=== PATIENT | female | born 1945 | race Caucasian/White ===

== ENCOUNTER 2023-10-12 13:10 | Outpatient (RCR) | payer MEDICARE, SELFPAY | END 2023-10-12 23:59 | disposition home or self-care (01) | LOC: ROT 13:10 | PROVIDERS: ATTENDING PHYSICIAN Nurse Practitioner Primary Care | DX: G91.2 (Idiopathic) normal pressure hydrocephalus (principal); G31.84 Mild cognitive impairment of uncertain or unknown etiology; G60.9 Hereditary and idiopathic neuropathy, unspecified; R47.02 Dysphasia; R41.841 Cognitive communication deficit | CPT/HCPCS: 97110; 97112; 97129; 97130; 97167; 97530 ==

== ENCOUNTER 2023-11-11 13:02 | Outpatient (RCR) | payer MEDICARE, SELFPAY | END 2023-11-11 23:59 | disposition home or self-care (01) | LOC: ROT 13:02 | PROVIDERS: ATTENDING PHYSICIAN Nurse Practitioner Primary Care | DX: G91.9 Hydrocephalus, unspecified (principal); G91.2 (Idiopathic) normal pressure hydrocephalus (principal); Z73.6 Limitation of activities due to disability; G31.84 Mild cognitive impairment of uncertain or unknown etiology; G60.9 Hereditary and idiopathic neuropathy, unspecified; R47.02 Dysphasia | CPT/HCPCS: 97110; 97112; 97129; 97130; 97530; 97535 ==

== ENCOUNTER → 2023-11-20 17:06 | Outpatient (REF) | payer MEDICARE, SELFPAY ==
[2023-11-20 17:36] LABS: Urine Albumin Negative (Neg - Trace); Urine Bilirubin Negative (Negative); Urine Character Clear (Clear); Urine Color Yellow; Urine Glucose Negative (Negative); Urine Ketone Negative (Negative); Urine Leukocyte 1+ (Negative); Urine Nitrite Negative (Negative); Urine Occult Blood Negative (Negative); Urine Specific Gravity 1.005 (<1.030); Urine Urobilinogen Negative (Neg - 1+); Urine pH 6.5 (5.0-9.0)
[2023-11-20 17:53] LABS: Urine White Cell 0-2 /HPF (0-5)
== END ==
LOC: REG 17:06
PROVIDERS: ATTENDING PHYSICIAN Nurse Practitioner Family
DX: R82.90 Unspecified abnormal findings in urine (principal)
CPT/HCPCS: 81003; 81015; 87086

== ENCOUNTER 2023-12-07 10:52 | Outpatient (RCR) | payer MEDICARE, SELFPAY | END 2023-12-07 23:59 | disposition home or self-care (01) | LOC: ROT 10:52 | PROVIDERS: ATTENDING PHYSICIAN Nurse Practitioner Primary Care | DX: G91.9 Hydrocephalus, unspecified (principal); G91.2 (Idiopathic) normal pressure hydrocephalus (principal); Z73.6 Limitation of activities due to disability; G31.84 Mild cognitive impairment of uncertain or unknown etiology; G60.9 Hereditary and idiopathic neuropathy, unspecified; R47.02 Dysphasia | CPT/HCPCS: 97110; 97112; 97129; 97130; 97530 ==

== ENCOUNTER 2023-12-14 13:43 | Outpatient (RCR) | payer MEDICARE, SELFPAY | END 2023-12-14 23:59 | disposition home or self-care (01) | LOC: ROT 13:43 | PROVIDERS: ATTENDING PHYSICIAN Nurse Practitioner Primary Care | DX: G91.2 (Idiopathic) normal pressure hydrocephalus (principal); G31.84 Mild cognitive impairment of uncertain or unknown etiology; G60.9 Hereditary and idiopathic neuropathy, unspecified; R47.02 Dysphasia | CPT/HCPCS: 97129; 97130; 97530 ==

== ENCOUNTER 2023-12-14 14:23 | Emergency (ER) | payer MEDICARE, SELFPAY ==
[2023-12-14 14:30] VITALS: BP 141/84
[2023-12-14 14:47] LABS: % Basophils 0.6 % (0-2); % Eosinophils 2.6 % (0-6); % Immature Granulocytes 0.2 % (0-0.5); % Neutrophils 61.6 % (42.2-75.2); Absolute Basophils 0.1 10^3/uL (0-0.2); Absolute Eosinophils 0.2 10^3/uL (0-0.7); Absolute Lymphocytes 2.2 10^3/uL (1.2-3.4); Absolute Monocytes 0.7 10^3/uL (0.1-0.6); Absolute Neutrophils 5.1 10^3/uL (1.4-6.5); Hematocrit 41.9 % (37.0-47.0); Hemoglobin 14.3 g/dL (12.0-16.0); Mean Corp Hgb Conc. 34.1 g/dL (33.0-37.0); Mean Corpuscular Volume 93.7 fL (81.0-99.0); Mean Platelet Volume 8.7 fL (7.4-10.4); Nucleated Red Blood Cells % 0 %; Platelet Count 291 10^3/uL (130-400); Red Blood Cell Count 4.47 10^6/uL (4.20-5.40); White Blood Cell Count 8.2 10^3/uL (4.8-10.8)
[2023-12-14 15:26] LABS: ALT (SGPT) 23 U/L (0-35); AST (SGOT) 27 U/L (14-36); Albumin 4.6 g/dl (3.5-5.0); Alkaline Phosphatase 83 U/L (38-126); Blood Urea Nitrogen 10 mg/dl (7-17); Calcium 9.9 mg/dl (8.4-10.2); Carbon Dioxide 27 mmol/L (22-30); Chloride 100 mmol/L (98-107); Glucose 147 mg/dl (70-99); Lipase 97 U/L (23-300); Potassium 3.3 mmol/L (3.5-5.1); Sodium 136 mmol/L (135-145); Total Bilirubin 0.7 mg/dl (0.2-1.3); Total Protein 7.5 g/dl (6.3-8.2); eGFR > 60.00
[2023-12-14] MEDS: OMNIPAQUE 50 ML PO (18:43)
--- NOTE | 2023-12-14 19:03 | ED.GENMED ---
History of Present Illness
General
Chief Complaint: Abdominal Symptoms
Source: patient
Exam Limitations: none
Time Seen by Provider: 12/14/23 18:05
Travel History
Have you had any contact with someone who has COVID-19?: No
Do you have any symptoms of coronavirus? Fever > 100 degrees, chills, cough, shortness of breath, sore throat, loss of taste or smell, muscle aches, or headache?: No
History of Present Illness
History of Present Illness:
78-year-old female with history of hydrocephalus, has a [employer] shunt presents with symptoms of abdominal pain and vomiting. The vomiting increased over the past 2 to 3 days. She notes overall a significant weight loss since having her JETTING M[employer] shunt placed
in May 2023. She is starting with symptoms that remind her of she needed her JETTING M[employer]INE [employer] shunt placed. She is getting sick in the car. She denies significant headache. She denies fever or chest pain. No other complaints at this time. She was seen
by her family doctor who was advised to get a CT scan of her abdomen pelvis with oral and IV contrast however she was unable to make it work secondary to her IV contrast allergy.
Past History
Past History
ED Past Medical History: CAD, Cancer (Lung), GERD, Hypercholesterolemia, [place] and Other (diverticular disease, IBS, hiatal hernia, esophageal varices, esophageal stricture, benign essential tremor)
ED Past Surgical History: Brain and Other (Lung resection for cancer)
Social History
Tobacco: Non-smoker
Alcohol: Other
Drug: None
Personal:
Living: with family
Employment: Retired
Family History
Family History: Other
Phy Exam
Physical Exam
Physical Exam:
General: Well-appearing female no acute respiratory distress
HEENT: Normocephalic atraumatic neck is supple pupils equal round reactive to light
Heart: Regular rate and rhythm no murmurs
Lungs: Clear to auscultation bilaterally no wheezing
Abdomen: Soft mildly tender to the lower abdomen. No guarding or rebound normal bowel sounds
Extremities: No cyanosis or edema
Skin: Warm no rash or lesion
Neurologic: Alert and oriented no facial asymmetry
Course
Orders/Labs/Results
Orders:
Orders
12/14/23 14:39
Complete Blood Count/With Diff Urgent
Comprehensive Metabolic Panel Urgent
Lipase Urgent
12/14/23 18:25
Diphenhydramine [Benadryl] 50 mg IV NOW STA
Hydrocortisone Sod Succinate [Solu-Cortef] 200 mg IV NOW STA
Iohexol [Omnipaque] See Protocol PO NOW STA
12/14/23 18:26
CT Abd/pel W Iv And Oral Contr Urgent
Comment:
Reason For Exam: abdominal pain, vomiting, weight loss
CT Head W/o Iv Contrast Urgent
Comment:
Reason For Exam: vomiting, J[employer]TING [employer] shunt
12/14/23 20:44
Hydrocortisone Sod Succinate [Solu-Cortef] 200 mg .ROUTE .STK-MED ONE
Abnormal Lab Results
12/14/23
14:39
MCH 32.0 H pg
(27.0-31.0)
Absolute Monos (auto) 0.7 H 10^3/uL
(0.1-0.6)
Potassium 3.3 L mmol/L
(3.5-5.1)
Creatinine 0.5 L mg/dL
(0.6-1.0)
Glucose 147 H mg/dl
(70-99)
12/14/23 14:39
12/14/23 14:39
Vital Signs
Initial and Last Documented VS:
Initial Vital Signs
Temp Pulse Resp BP Pulse Ox
98.1 F 79 18 141/84 97
12/14/23 14:30 12/14/23 14:30 12/14/23 14:30 12/14/23 14:30 12/14/23 14:30
Last Documented Vital Signs
Temp Pulse Resp BP Pulse Ox
98.1 F 79 18 141/84 97
12/14/23 14:30 12/14/23 14:30 12/14/23 14:30 12/14/23 14:30 12/14/23 14:30
MDM/Problems Addressed
Differential Diagnosis Includes:
Abdominal pain with vomiting. History of J[employer]TING [employer] shunt. Patient notes similarity of symptoms today compared to the time prior to having a JETTING MACHINE [employer] shunt. Will get labs. Will check CT scan of head to evaluate for hydrocephalus and CT scan of abdomen and
pelvis with oral and IV contrast to evaluate for reasons for nausea vomiting abdominal pain with weight loss. She is allergic to IV contrast but is a mild allergy. Will pretreat with Solu-Cortef and Benadryl
*Critical Care Note
Total Time (30-74mins, 75-104mins- exclusive of procedures): Not Applicable
Update Note
Update Note:
Workup here included CT of the head which was negative for acute finding. CT of the abdomen and pelvis was performed after pretreatment for IV contrast allergy. This showed no acute finding. There is questionable thickening of the gastric antrum
to suggest possibility of gastritis. Recommend Zofran if needed for nausea and follow-up with GI. Stable for discharge.
ED Attending Note
-
Portions of this chart may have been created with voice recognition software.� Occasional wrong word or��sound alike� substitutions may have occurred due to the inherent limitations of voice recognition software.
Discharge Plan
Departure
Patient Disposition: Home (Routine Discharge)
Date of Disposition: 12/14/23
Time of Disposition: 22:21
Patient with high blood pressure during this ER visit?: No
Discharge Problem:
Nausea & vomiting
Instructions: Nausea and Vomiting, Adult (DC)
Prescriptions:
New
ondansetron 4 mg tablet,disintegrating
4 mg PO TID PRN (Reason: nausea and vomiting) Qty: 10 0RF
No Action
primidone 50 mg Tablet
100 mg PO HS
omega-3 fatty acids 1,000 mg Capsule
1,000 mg PO DAILY
montelukast [Singulair] 10 mg Tablet
10 mg PO DAILY
lysine [L-Lysine] 500 mg Tablet
500 mg PO DAILY
aspirin 81 mg Capsule
81 mg PO DAILY
fluoxetine 40 mg Capsule
40 mg PO DAILY
atorvastatin 80 mg Tablet
80 mg PO DAILY
mirtazapine 15 mg Tablet
15 mg PO HS
fluticasone propion-salmeterol [Advair Diskus] 100-50 mcg/dose Blister With Device
1 inh INHALATION PRN PRN (Reason: SOB)
loratadine 10 mg Tablet
10 mg DAILY
gabapentin 100 mg Tablet
200 mg PO TID
celecoxib 200 mg Capsule
200 mg PO DAILY
ranolazine [Ranexa] 500 mg Tablet Extended Release 12 Hr
500 mg PO BID
icosapent ethyl [Vascepa] 1 gram Capsule
2 g PO BID
docusate sodium 100 mg Capsule
100 mg PO BID 30 Days Qty: 60 0RF
guaifenesin [Mucinex] 600 mg Tablet Extended Release 12hr
600 mg PO Q12 Qty: 30 0RF
benzonatate 100 mg Capsule
200 mg PO TIDPRN PRN (Reason: cough) Qty: 14 0RF
albuterol sulfate 90 mcg/actuation Hfa Aerosol Inhaler
2 puff inhalation R Q4HPRN PRN (Reason: SOB) 30 Days Qty: 1 0RF
acetaminophen 325 mg Tablet
650 mg PO Q4HPRN PRN (Reason: Mild Pain / Temp > 101) Qty: 60 0RF
potassium chloride 20 mEq tablet,ER particles/crystals
20 meq PO DAILY Qty: 5 0RF
ondansetron 4 mg Tablet,Disintegrating
4 mg PO BIDPRN PRN (Reason: nausea/vomiting) Qty: 10 0RF
Referrals:
Michelle Cantu CRNP [Family Provider] -
Activity Restrictions/Additional Instructions:
Continue drinking plenty of clear liquids. Use Zofran if needed for nausea. Return for worsening symptoms otherwise follow-up with GI
Interventions
Interventions:
*Risk Screen - Suicide Last Done: 12/14/23 14:30
*General Assessment Last Done: 12/14/23 14:30
*Neglect/Abuse Screening Last Done: 12/14/23 14:30
*ED COVID-19 Vaccine History Last Done: 12/14/23 18:07
QW-Tzfpcm-[id number] Assessment Last Done: 12/14/23 18:07
Discharge Date and Time
Print Language: ALBANIAN
[2023-12-14] MEDS: SOLU-CORTEF 200 MG IV (19:53)
[2023-12-14] MEDS: BENADRYL 50 MG IV (19:53)
[2023-12-14 22:37] VITALS: BP 123/74
== END 2023-12-14 22:38 | disposition home or self-care (01) ==
LOC: EMR 14:23
PROVIDERS: Emergency Medicine; EMERGENCY PHYSICIAN Emergency Medicine; FAMILY PHYSICIAN Nurse Practitioner Primary Care
DX: R11.2 Nausea with vomiting, unspecified (principal); Z98.2 Presence of cerebrospinal fluid drainage device
CPT/HCPCS: 99285; 96374; 96375; 70450; 74177; 80053; 83690; 85025; Q9967

== ENCOUNTER 2024-03-14 14:15 | Emergency (ER) | payer MEDICARE, SELFPAY ==
[2024-03-14 14:19] VITALS: BP 141/78
[2024-03-14 14:22] VITALS: BP 141/78
[2024-03-14 15:00] VITALS: BP 123/103
--- NOTE | 2024-03-14 15:22 | ED.GENMED ---
History of Present Illness
General
Chief Complaint: Anxiety
Time Seen by Provider: 03/14/24 15:18
History of Present Illness
History of Present Illness:
HPI: The reason for visit was unclear upon arrival so I spoke to the daughter over the phone at 3:30 PM. The daughter tells me that the patient was recently hospitalized at [place]. She had some GI issues and has been getting PT/OT at home. OT
noted today that when she got out of the shower she was shaking (more than her baseline tremor) and was hyperventilating. The primary care provider was called and ultimately the decision was made to have the patient come to the hospital. Upon my
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 She reportedly had a high heart rate earlier as well.
EXAM:
GENERAL: Appears in no distress but a subtle tremor is noted
HEENT: Moist oral mucosa
CARDIOVASCULAR: Regular rate and rhythm
PULMONARY: No respiratory distress, breathing is nonlabored, equal and clear breath sounds
ABDOMEN: Soft and nontender with no peritoneal signs
NEUROLOGIC: The patient is not oriented to place and has trouble naming the day, strength is equal in all extremities, subtle tremor, no sensory changes
EXTREMITIES: Moves all extremities equally, no tenderness, no edema
PYSCHIATRIC: Very limited historian, limited insight and judgment
TIME OF INITIAL ENCOUNTER: 3:30 PM
NUMBER AND COMPLEXITY OF PROBLEMS ADDRESSED AT THE ENCOUNTER
� Chronic conditions affecting care: Lung cancer, CAD/TX, hyperlipidemia,
� Acute Exacerbation and/or Progression of Chronic Illness: The chronicity of this is unclear at this time
� Differential Diagnosis includes: Anxiety, hypoglycemia, dysrhythmia
AMOUNT AND/OR COMPLEXITY OF DATA TO BE REVIEWED AND ANALYZED
� I performed an independent evaluation of and my interpretation is:
EKG: Sinus 88, normal axis, nonspecific ST abnormality, QTc is noted to be prolonged however also was prolonged last year
CT:
X-rays:
Laboratory Studies: Blood sugar 93
Other:
� Review of other/old records: I reviewed records, OT notes here from January of this year indicate history of idiopathic normal pressure hydrocephalus
� Clinical information was obtained by an independent historian: I spoke to the daughter over the phone�during her conversation the daughter was pleased with how she sounded over the phone
� Prescriptions/Medications Considered but not given:
� Further testing considered but not performed:
RISK OF COMPLICATIONS AND/OR MORBIDITY OR MORTALITY OF PATIENT MANAGEMENT
� Social determinants of health affecting care: Lives at home with who apparently is disabled
� Discussion with other providers:
� Escalation of care including admission/observation vs risk of discharge considered: The patient had reportedly an extensive workup at [place]. Daughter states there has been no recent concerning lab abnormalities. There was
some question if she ate today. Blood check. EKG is also obtained.
Past History
Past History
ED Past Medical History: CAD, Cancer (Lung), GERD, Hypercholesterolemia, [place] and Other (diverticular disease, IBS, hiatal hernia, esophageal varices, esophageal stricture, benign essential tremor)
ED Past Surgical History: Brain and Other (Lung resection for cancer)
Social History
Tobacco: Non-smoker
Alcohol: Other
Drug: None
Personal:
Living: with family
Employment: Retired
Family History
Family History: Other
Phy Exam
Physical Exam
Physical Exam:
See HPI
Course
Orders/Labs/Results
Orders:
Orders
03/14/24 15:34
Electrocardiogram (*1) Urgent
Reason for Study: QTc Monitoring
EKG- Treatment ONCE
03/14/24 15:36
Bedside Glucose- Treatment ONCE
Vital Signs
Initial and Last Documented VS:
Initial Vital Signs
BP
141/78
03/14/24 14:19
Last Documented Vital Signs
Temp Pulse Resp BP Pulse Ox
98.1 F 91 18 123/103 99
03/14/24 14:22 03/14/24 15:00 03/14/24 15:00 03/14/24 15:00 03/14/24 15:00
*Critical Care Note
Total Time (30-74mins, 75-104mins- exclusive of procedures): Not Applicable
ED Attending Note
-
Portions of this chart may have been created with voice recognition software.� Occasional wrong word or��sound alike� substitutions may have occurred due to the inherent limitations of voice recognition software.
Discharge Plan
Departure
Patient Disposition: Home (Routine Discharge)
Date of Disposition: 03/14/24
Time of Disposition: 15:40
Patient with high blood pressure during this ER visit?: Yes
Discharge Problem:
Anxiety
Instructions: Anxiety, Adult (DC), BLOOD PRESSURE
Prescriptions:
No Action
primidone 50 mg Tablet
100 mg PO HS
omega-3 fatty acids 1,000 mg Capsule
1,000 mg PO DAILY
montelukast [Singulair] 10 mg Tablet
10 mg PO DAILY
lysine [L-Lysine] 500 mg Tablet
500 mg PO DAILY
aspirin 81 mg Capsule
81 mg PO DAILY
fluoxetine 40 mg Capsule
40 mg PO DAILY
atorvastatin 80 mg Tablet
80 mg PO DAILY
mirtazapine 15 mg Tablet
15 mg PO HS
fluticasone propion-salmeterol [Advair Diskus] 100-50 mcg/dose Blister With Device
1 inh INHALATION PRN PRN (Reason: SOB)
loratadine 10 mg Tablet
10 mg DAILY
gabapentin 100 mg Tablet
200 mg PO TID
celecoxib 200 mg Capsule
200 mg PO DAILY
ranolazine [Ranexa] 500 mg Tablet Extended Release 12 Hr
500 mg PO BID
icosapent ethyl [Vascepa] 1 gram Capsule
2 g PO BID
docusate sodium 100 mg Capsule
100 mg PO BID 30 Days Qty: 60 0RF
guaifenesin [Mucinex] 600 mg Tablet Extended Release 12hr
600 mg PO Q12 Qty: 30 0RF
benzonatate 100 mg Capsule
200 mg PO TIDPRN PRN (Reason: cough) Qty: 14 0RF
albuterol sulfate 90 mcg/actuation Hfa Aerosol Inhaler
2 puff inhalation R Q4HPRN PRN (Reason: SOB) 30 Days Qty: 1 0RF
acetaminophen 325 mg Tablet
650 mg PO Q4HPRN PRN (Reason: Mild Pain / Temp > 101) Qty: 60 0RF
potassium chloride 20 mEq tablet,ER particles/crystals
20 meq PO DAILY Qty: 5 0RF
ondansetron 4 mg Tablet,Disintegrating
4 mg PO BIDPRN PRN (Reason: nausea/vomiting) Qty: 10 0RF
ondansetron 4 mg tablet,disintegrating
4 mg PO TID PRN (Reason: nausea and vomiting) Qty: 10 0RF
Referrals:
UNKNOWN - PT DOES,NOT KNOW [Family Provider] -
Activity Restrictions/Additional Instructions:
Cardiac monitoring was normal here. Oxygen levels are very good. Vital signs are unremarkable with exception of slightly high blood pressure. Your heart rate was normal. Blood sugar was 93 which is excellent. Return here if worse.
Interventions
Interventions:
*Risk Screen - Suicide Last Done: 03/14/24 14:26
*Neglect/Abuse Screening Last Done: 03/14/24 14:26
ED- Fall Risk Assessment Last Done: 03/14/24 14:26
*ED COVID-19 Vaccine History Last Done: 03/14/24 14:25
Discharge Date and Time
Print Language: MONTSERRATIAN
[2024-03-14 15:39] LABS: Glucose - Point of Care 93 mg/dl (70-99)
== END 2024-03-14 16:27 | disposition home or self-care (01) ==
LOC: EMR 14:15
PROVIDERS: EMERGENCY PHYSICIAN Emergency Medicine
DX: F41.9 Anxiety disorder, unspecified (principal); R25.1 Tremor, unspecified; R06.4 Hyperventilation; R03.0 Elevated blood-pressure reading, without diagnosis of hypertension; Z79.82 Long term (current) use of aspirin; Z88.5 Allergy status to narcotic agent; Z91.041 Radiographic dye allergy status
CPT/HCPCS: 99284; 82962; 93005

== ENCOUNTER → 2024-03-30 18:08 | Outpatient (REF) | payer MEDICARE, SELFPAY | LOC: RCS 18:08 | PROVIDERS: ATTENDING PHYSICIAN Nurse Practitioner Family | DX: R55 Syncope and collapse (principal); R93.1 Abnormal findings on diagnostic imaging of heart and coronary circulation; Z86.79 Personal history of other diseases of the circulatory system | CPT/HCPCS: 93306 ==

== ENCOUNTER → 2024-04-23 10:33 | Outpatient (REF) | payer MEDICARE, SELFPAY | LOC: RAD 10:33 | PROVIDERS: ATTENDING PHYSICIAN Nurse Practitioner Family; FAMILY PHYSICIAN Internal Medicine Hematology & Oncology; OTHER PHYSICIAN Specialist | DX: R11.0 Nausea (principal); G91.2 (Idiopathic) normal pressure hydrocephalus | CPT/HCPCS: 70450 ==

== ENCOUNTER → 2024-06-02 13:46 | Outpatient (REF) | payer MEDICARE, SELFPAY | LOC: WDC 13:46 | PROVIDERS: ATTENDING PHYSICIAN Nurse Practitioner Primary Care | DX: Z12.31 Encounter for screening mammogram for malignant neoplasm of breast (principal) | CPT/HCPCS: 77063; 77067 ==

== ENCOUNTER → 2024-07-29 11:26 | Outpatient (REF) | payer MEDICARE, SELFPAY | LOC: RAD 11:26 | PROVIDERS: ATTENDING PHYSICIAN Nurse Practitioner Family | DX: R05.3 Chronic cough (principal) | CPT/HCPCS: 71046 ==

== ENCOUNTER → 2024-10-20 13:02 | Outpatient (REF) | payer MEDICARE, SELFPAY | LOC: RCS 13:02 | PROVIDERS: ATTENDING PHYSICIAN Student in an Organized Health Care Education/Training Program; FAMILY PHYSICIAN Nurse Practitioner Primary Care | DX: I35.0 Nonrheumatic aortic (valve) stenosis (principal) | CPT/HCPCS: 93306 ==

== ENCOUNTER → 2024-10-28 12:05 | Outpatient (REF) | payer MEDICARE, SELFPAY | LOC: RCS 12:05 | PROVIDERS: ATTENDING PHYSICIAN Student in an Organized Health Care Education/Training Program; FAMILY PHYSICIAN Nurse Practitioner Primary Care | DX: I35.0 Nonrheumatic aortic (valve) stenosis (principal); I50.22 Chronic systolic (congestive) heart failure | CPT/HCPCS: 93017 ==

== ENCOUNTER 2024-11-25 10:23 | Day surgery (SDC) | payer MEDICARE, SELFPAY ==
--- NOTE | 2024-11-24 17:35 | CONSULT.STRU ---
Consultation
-
Date/Time Consultation Requested: 11/25/2024
Date/Time Consultation Performed: 11/25/2024
Requesting Provider: Saleem Lozano MD
Performing Provider: THANH Reynolds
Reason for Consultation: /TAVR
Patient History
Physicians
Family Physician: Michelle Cantu MD
Outpatient Industrial Chemist: Saleem Carlos MD
Primary Industrial Chemist: Saleem Lozano MD
History of Present Illness
Ms. Woodward is a very pleasant 79 yof with a past medical history significant for As, CAD, PA, high cholesterol, lung Ca (stage IA), PE, [employer] shunt, and asthma. Her echocardiogram from 10/20/2024 is notable for EF 55-60%, AV P/M 49/76, CANDIS 0.6, DI, 0.2,
pk inocente 4.37, mild MR, Trace TR. From a symptomatology standpoint, she describes increased fatigue. Discussed the pathophysiology and treatment of options of including SAVR and TAVR. Explained the evaluation process comprising of lab work, CT
scan, CT surgical consult, dental clearance, and a heart team discussion. Prescriptions, appointments, TAVR booklet, and contact information given to patient. Allowed for and answered questions at bedside.
Past Medical History
Past Medical History: Asthma, CAD, Cancer (lung), Covid-19, GERD, Hypercholesterolemia, PA, VALENTÍN, Valvular Disease () and Other (PE, IBS, duodenal ulcer, TAkotsubo CM)
Past Surgical History
Past Surgical History: Orthopedic (rotator cuff, bilateral knee replacement, first finger amputation), Tonsilectomy and Other (right lobectomy, right lung nodules removed)
Dental History
UTD (will call with dental information)
Family History
Mother: N/A
Father: N/A
Family Medical History: Diabetes
Social History
Alcohol: None
Drug: None
Tobacco: Non-Smoker
Allergies
Allergy/AdvReac Type Severity Reaction Status Date / Time
codeine Allergy headache Verified 10/25/22 17:30
Iodinated Contrast Media Allergy 'I need Verified 10/25/22 17:30
the prep'
Opioids - Morphine Analogues Allergy NARCOTICS-N Verified 10/25/22 17:30
AUSEA/VOMIT
ING
Home Medications
�Medication �Instructions �Recorded �Confirmed �Type
aspirin 81 mg capsule 81 mg PO DAILY Blood clot 06/13/22 10/25/22 History
prevention/tx
atorvastatin 80 mg tablet 80 mg PO DAILY High cholesterol 06/13/22 10/25/22 History
fluoxetine 40 mg capsule 40 mg PO DAILY Mental 06/13/22 10/25/22 History
Health/Anxiety
fluticasone 100 mcg-salmeterol 50 1 inh inhalation PRN PRN SOB 06/13/22 10/25/22 History
mcg/dose blistr powdr for
inhalation (Advair Diskus)
gabapentin 100 mg tablet 200 mg PO TID Neurological 06/13/22 10/25/22 History
Condition
loratadine 10 mg tablet 10 mg DAILY Allergies 06/13/22 10/25/22 History
lysine 500 mg tablet (L-Lysine) 500 mg PO DAILY Supplement 06/13/22 10/25/22 History
mirtazapine 15 mg tablet 15 mg PO HS Sleep 06/13/22 10/25/22 History
montelukast 10 mg tablet 10 mg PO DAILY Allergies 06/13/22 10/25/22 History
(Singulair)
omega-3 fatty acids 1,000 mg 1,000 mg PO DAILY Supplement 06/13/22 10/25/22 History
capsule
primidone 50 mg tablet 100 mg PO HS Seizures 06/13/22 10/25/22 History
celecoxib 200 mg capsule 200 mg PO DAILY 10/25/22 10/25/22 History
icosapent ethyl 1 gram capsule 2 g PO BID 10/25/22 10/25/22 History
(Vascepa)
ranolazine 500 mg tablet,extended 500 mg PO BID 10/25/22 10/25/22 History
release,12 hr (Ranexa)
acetaminophen 325 mg tablet 650 mg (2 x 325 mg) PO Q4HPRN PRN 10/27/22 Rx
Mild Pain / Temp > 101 #60 tabs
albuterol sulfate 90 mcg/actuation 2 puff inhalation R Q4HPRN PRN SOB 10/27/22 Rx
aerosol inhaler 30 days #1 amp
benzonatate 100 mg capsule 200 mg (2 x 100 mg) PO TIDPRN PRN 10/27/22 Rx
cough #14 caps
docusate sodium 100 mg capsule 100 mg PO BID 30 days #60 caps 10/27/22 Rx
guaifenesin 600 mg tablet, 600 mg PO Q12 #30 tabs 10/27/22 Rx
extended release 12 hr (Mucinex)
ondansetron 4 mg disintegrating 4 mg PO BIDPRN PRN nausea/vomiting 06/07/23 Rx
tablet #10 tabs
potassium chloride 20 mEq 20 meq PO DAILY #5 tabs 06/07/23 Rx
tablet,extended release(part/cryst)
ondansetron 4 mg disintegrating 4 mg PO TID PRN nausea and 12/14/23 Rx
tablet vomiting #10 tabs
STS%
STS %: 2.2
Review of Systems
-
History Source: Patient
General: Reports Fatigue
HEENT: Reports No Symptoms
Respiratory: Reports No Symptoms
Cardiac: Reports No Symptoms
Abdomen/GI: Reports No Symptoms
: Reports No Symptoms
Musculoskeletal: Reports No Symptoms
Skin: Reports No Symptoms
Neurological: Reports Dizzy and Other (forgetfulness)
Vascular: Reports No Symptoms
Physical Exam
Labs
10/27/2024
HH: 13.4/40.5
BUn/Creatinine: 110.82
GFR: 73
Diagnostic Studies
ECHOCARDIOGRAM 10/20/2024
CONCLUSIONS
Normal LV size and function with mild concentric LVH. EF 55-60%. Stage I
diastolic dysfunction.
Normal RV size and function.
Mild MR.
Calcified aortic valve with restricted opening and mean gradient 49 mmHg, peak
gradient 76, CANDIS 0.6 cm eq, DVI 0.2.
Trace TR.
Mild to moderate pulmonic regurgitation.
Procedure Type:�Isolated AVR
Perioperative Outcome Estimate %
Operative Mortality 2.2%
Morbidity & Mortality 6.01%
Stroke 1.29%
Renal Failure 0.711%
Reoperation 3.12%
Prolonged Ventilation 2.77%
Deep Sternal Wound Infection 0.033%
Long Hospital Stay (>14 days) 2.95%
Short Hospital Stay (<6 days)* 50.7%
Exam
General: Well Developed, Well Nourished and No Apparent Distress
HEENT: Normocephalic
Neck: Trachea Midline
Respiratory: Clear
Cardiac: Regular Rhythm and Murmur (IV/ NEERAJ)
GI: Soft, Non Tender and Non Distended
Rectal: Deferred by Provider
Skin: Warm and Dry
Neuro: Awake, Alert, Oriented and AO x 3
Psych: Calm
Assessment / Plan
-
Aortic Stenosis:
Continue TAVR evaluation
Trend creatinine (Rx given)
TAVR CT (12/09)--Premedicate with prednisone and benadryl
CT surgical consult (TT 12/19)
Frailty and KCCQ12 at consult
Continue Aspirin
Dental clearance
Heart team discussion
Data Reviewed
-
Chief Client Officer: Discussed with Physician
Echo: Report Reviewed by me and Discussed with Physician
Labs: Labs Reviewed by me
Old Records: Reviewed (Dr. Lozano OV)
Total Time Spent with Patient (in minutes): 45
[2024-11-25] VITALS (11 sets, daily range): BP systolic 100–125; BP diastolic 45–97; BMI 22.3
--- NOTE | 2024-11-25 19:59 | ITS.CL.PN ---
Installation Helper - Procedure Note
Procedure
Procedure Note:
CARDIAC CATHETERIZATION REPORT
Date of Procedure: 11/25/2024
Referring: Dr. Saleem Mo MD
Indication: Severe aortic stenosis
PROCEDURE(S)
1. right heart catheterization
2. coronary angiography
ACCESS
1. 6F right radial artery (closure: radial band)
2. 5F right antecubital vein (closure: manual hemostasis)
CATHETERS
1. 5F Henderson-Angela
2. 6F JR4
3. 6F AL1
MODERATE SEDATION: 40 minutes of moderate sedation was utilized. An independent medical management specialist was present to assist with and help manage the patient's level of consciousness and physiologic status.
ULTRASOUND GUIDED VASCULAR ACCESS (right radial artery): Ultrasound was utilized for vascular access. The vessel was visualized under ultrasound and noted to be patent. An image of the vessel was stored permanently in the patient's medical record.
Under direct ultrasound guidance, vascular access was obtained using a modified Seldinger technique and a 6 [place] sheath was placed.
ULTRASOUND GUIDED VASCULAR ACCESS (right brachial vein): Ultrasound was utilized for vascular access. The vessel was visualized under ultrasound and noted to be patent. An image of the vessel was stored permanently in the patient's medical record.
Under direct ultrasound guidance, vascular access was obtained using a modified Seldinger technique and a 5 [place] sheath was placed.
HEMODYNAMIC DATA
AO 115/70 (mean 91) mmHg
RA 11 mmHg
RV 38/4 (EDP 9) mmHg
PA 36/15 (mean 25) mmHg
PCWP 18 mmHg
SaO2 93.9%
SvO2 74.1%
Hb 13.2 g/dL
CO/CI 5.59/3.52 L/min/m2
SVR 1145 dsc*-5
PVR 1.3 Wood units
CORONARY ANGIOGRAPHY
Dominance: Left
LM: Short, normal
LAD: Large vessel giving rise to 3 small caliber diagonal branches. There is mild nonobstructive disease
LCx: Large dominant vessel giving rise to a small OM1, very large branching OM2, and moderate caliber LPDA. There is mild nonobstructive disease
RCA: Small and nondominant without significant disease
RADIATION: dose 310 mGy; DAP 23.8 Gy*cm2; fluoroscopy time 12.0 min
CONCLUSIONS
1. Mild nonobstructive coronary artery disease in a left dominant system.
2. Mildly elevated biventricular filling pressures, mild pulmonary hypertension, and normal cardiac output
RECOMMENDATIONS
1. Proceed with TAVR workup with CT scan and CT surgical meeting
2. Secondary prevention of coronary artery disease
Copy to: Michelle Cantu MD (PCP)
Signed: Saleem Lozano MD, PhD
== END 2024-11-25 19:55 | disposition home or self-care (01) ==
LOC: CATH 10:23
PROVIDERS: ATTENDING PHYSICIAN Student in an Organized Health Care Education/Training Program; FAMILY PHYSICIAN Nurse Practitioner Primary Care
DX: I35.0 Nonrheumatic aortic (valve) stenosis (principal); I27.20 Pulmonary hypertension, unspecified; I25.2 Old myocardial infarction; Z98.2 Presence of cerebrospinal fluid drainage device; J45.909 Unspecified asthma, uncomplicated; E78.00 Pure hypercholesterolemia, unspecified; I25.10 Atherosclerotic heart disease of native coronary artery without angina pectoris; Z96.653 Presence of artificial knee joint, bilateral; Z83.3 Family history of diabetes mellitus; K21.9 Gastro-esophageal reflux disease without esophagitis; I51.81 Takotsubo syndrome
CPT/HCPCS: 99152; 99153; 76937; 93456; C1769; C1894; Q9967

== ENCOUNTER 2024-11-29 06:11 | Day surgery (SDC) | payer MEDICARE, SELFPAY ==
[2024-11-29 08:52] VITALS: BMI 22.0
[2024-11-29 09:00] VITALS: BP 162/97
[2024-11-29] MEDS: ZOFRAN 4 MG IV (09:19)
[2024-11-29 09:25] VITALS: BMI 22.0
[2024-11-29 10:00] VITALS: BP 130/81
[2024-11-29 10:15] VITALS: BP 125/82
[2024-11-29 10:30] VITALS: BP 129/66
== END 2024-11-29 10:51 | disposition home or self-care (01) ==
LOC: SDS 06:11
PROVIDERS: ATTENDING PHYSICIAN Internal Medicine Gastroenterology
DX: D50.9 Iron deficiency anemia, unspecified (principal); K57.30 Diverticulosis of large intestine without perforation or abscess without bleeding; K64.8 Other hemorrhoids; K44.9 Diaphragmatic hernia without obstruction or gangrene; K31.7 Polyp of stomach and duodenum
CPT/HCPCS: 45378; 43239; 88305

== ENCOUNTER → 2024-12-08 08:28 | Outpatient (REF) | payer MEDICARE, SELFPAY ==
[2024-12-08 09:00] LABS: Ionized Calcium 1.36 mMOL/L (1.15-1.33)
[2024-12-08 09:28] LABS: Blood Urea Nitrogen 16 mg/dl (7-17); Calcium 11.1 mg/dl (8.4-10.2); Carbon Dioxide 29 mmol/L (22-30); Chloride 100 mmol/L (98-107); Glucose 106 mg/dl (70-99); Potassium 4.7 mmol/L (3.5-5.1); Sodium 140 mmol/L (135-145); eGFR > 60.00
[2024-12-10 09:15] LABS: Intact PTH 58.5 pg/ml (13.6-85.8)
== END ==
LOC: REG 08:28
PROVIDERS: ATTENDING PHYSICIAN Nurse Practitioner Acute Care; FAMILY PHYSICIAN Nurse Practitioner Primary Care
DX: I35.0 Nonrheumatic aortic (valve) stenosis (principal); E83.52 Hypercalcemia
CPT/HCPCS: 36415; 80048; 82330; 83970

== ENCOUNTER → 2024-12-09 09:03 | Outpatient (REF) | payer MEDICARE, SELFPAY | LOC: RAD 09:03 | PROVIDERS: ATTENDING PHYSICIAN Nurse Practitioner Acute Care; FAMILY PHYSICIAN Nurse Practitioner Primary Care | DX: I35.0 Nonrheumatic aortic (valve) stenosis (principal) | CPT/HCPCS: 74174; 75572; Q9967 ==

== ENCOUNTER → 2025-01-05 14:52 | Outpatient (REF) | payer MEDICARE, SELFPAY ==
[2025-01-05 15:27] LABS: % Basophils 0.9 % (0-2); % Eosinophils 4.9 % (0-6); % Immature Granulocytes 0.8 % (0-0.5); % Lymphocytes 29.9 % (20.5-51.1); % Monocytes 10.1 % (1.7-9.3); % Neutrophils 53.4 % (42.2-75.2); Absolute Basophils 0.1 10^3/uL (0-0.2); Absolute Eosinophils 0.4 10^3/uL (0-0.7); Absolute Immature Granulocytes 0.1 10^3/uL (0-0.05); Absolute Lymphocytes 2.4 10^3/uL (1.2-3.4); Absolute Monocytes 0.8 10^3/uL (0.1-0.6); Absolute Neutrophils 4.3 10^3/uL (1.4-6.5); Hematocrit 42.3 % (37.0-47.0); Hemoglobin 13.9 g/dL (12.0-16.0); Mean Corp Hgb Conc. 32.9 g/dL (33.0-37.0); Mean Corpuscular Hgb 31.6 pg (27.0-31.0); Mean Corpuscular Volume 96.1 fL (81.0-99.0); Mean Platelet Volume 8.6 fL (7.4-10.4); Nucleated Red Blood Cells % 0 %; Platelet Count 289 10^3/uL (130-400)
[2025-01-05 15:49] LABS: ALT (SGPT) 32 U/L (0-35); AST (SGOT) 25 U/L (14-36); Albumin 4.9 g/dl (3.5-5.0); Alkaline Phosphatase 94 U/L (38-126); Blood Urea Nitrogen 15 mg/dl (7-17); Calcium 10.8 mg/dl (8.4-10.2); Carbon Dioxide 28 mmol/L (22-30); Chloride 100 mmol/L (98-107); Glucose 84 mg/dl (70-99); Potassium 4.5 mmol/L (3.5-5.1); Sodium 140 mmol/L (135-145); Total Bilirubin 0.6 mg/dl (0.2-1.3); Total Protein 7.8 g/dl (6.3-8.2); eGFR > 60.00
[2025-01-05 16:04] LABS: Vitamin D, 25-OH*** 62.2 ng/mL (30-80)
[2025-01-05 16:18] LABS: TSH Reflex To Free T4 2.23 uIU/ml (0.47-4.68)
[2025-01-07 09:48] LABS: Intact PTH 61.9 pg/ml (13.6-85.8)
== END ==
LOC: REG 14:52
PROVIDERS: ATTENDING PHYSICIAN Nurse Practitioner Primary Care
DX: K92.1 Melena (principal); R63.4 Abnormal weight loss; R19.5 Other fecal abnormalities; R19.7 Diarrhea, unspecified; D50.8 Other iron deficiency anemias; E83.52 Hypercalcemia
CPT/HCPCS: 36415; 80053; 82306; 83970; 84443; 85025; 87045; 87046; 87324; 87328; 87329; 87427; 87449; 89055

== ENCOUNTER → 2025-01-11 14:35 | Outpatient (REF) | payer MEDICARE, SELFPAY ==
[2025-01-11 23:39] LABS: IgA 511 mg/dl (70-400); IgG 1037 mg/dl (700-1600); IgM 46 mg/dl (40-230)
== END ==
LOC: REG 14:35
PROVIDERS: ATTENDING PHYSICIAN Nurse Practitioner Primary Care
DX: E83.52 Hypercalcemia (principal)
CPT/HCPCS: 36415; 82784; 84155; 84165

== ENCOUNTER → 2025-01-12 11:22 | Outpatient (REF) | payer MEDICARE, SELFPAY | LOC: HWRAD 11:22 | PROVIDERS: ATTENDING PHYSICIAN Specialist; FAMILY PHYSICIAN Nurse Practitioner Primary Care | DX: G91.2 (Idiopathic) normal pressure hydrocephalus (principal); F03.90 Unspecified dementia, unspecified severity, without behavioral disturbance, psychotic disturbance, mood disturbance, and anxiety | CPT/HCPCS: 70450 ==

== ENCOUNTER → 2025-01-16 12:15 | Outpatient (REF) | payer MEDICARE, SELFPAY ==
[2025-01-16 13:45] LABS: 24 Hour Urine Total Volume 2250 ml
[2025-01-16 13:59] LABS: Urine Calcium < 1.0 mg/dl
[2025-01-16 14:15] LABS: 24 Hour Urine Creatinine 0.726 gm/day (0.8-1.8)
== END ==
LOC: REG 12:15
PROVIDERS: ATTENDING PHYSICIAN Nurse Practitioner Primary Care
DX: E83.52 Hypercalcemia (principal)
CPT/HCPCS: 81050; 82340; 82570

== ENCOUNTER 2025-01-19 08:01 | Inpatient (IN) | payer MEDICARE, SELFPAY ==
--- NOTE | 2025-01-11 10:32 | HPS.HSE ---
Family Physician
-
Family Physician: Michelle Cantu
Cardiology: Saleem Lozano
Chief Complaint
-
Pre-operative History and Physical for TAVR 01/19/2025
History of Present Illness
Che Woodward is a 79-year-old female with known progressive aortic valve stenosis. Her most recent echocardiogram demonstrated a peak/mean gradient of 76/49 mmHg, respectively. CANDIS was calculated to be 0.6 and peak velocity was over 4.3 m/s with a
preserved left ventricular ejection fraction of 55 to 60% and stage I diastolic dysfunction. Her left heart catheterization revealed mild nonobstructive coronary disease. An invasive mean gradient was not performed. From a symptomatology standpoint,
she describes fatigue. In comparison to 1 year ago, she feels her fatigue has progressively gotten worse. Functionally, she is independent, however she has memory impairment and requires assistance from her family with scheduling appointments and
understanding instructions. She meets criteria for severe aortic valve stenosis and is symptomatic. She was reviewed by the Heart Team at the SDM meeting and TAVR was deemed the appropriate treatment. Patient denies chest pain, palpitations, PND or
peripheral edema. She does state she sleeps with her adjustable bed with the head slightly elevated to help her breathing.
Reviewed medication list. She will take all her medications until day prior to her TAVR. Then morning of she will take only aspirin and her inhalers, if needed, the morning of her procedure. Her arrival time is 0730. Prescription and instructions
for pre-medication for her contrast allergy given. She will take Prednisone 50mg at 2100 on 01/18, 0300 on 01/19 and manager neonatal to lab will receive the final dose of prednisone with benadryl. She is aware she will receive a call next Thu. to review
instructions again and confirm arrival time. Allowed for and answered questions.
Medical History
Past Medical History
Past Medical History: Reports Asthma, CAD (GA x 2), Cancer (Lung cancer Stage 1A), GERD, Hypercholesterolemia, Psychiatric (anxiety/depression) and Other (Schatzki ring s/p dilation 2012, PE after TKA in 2011, IBS, Duodenal ulcer, takotsubo
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
Past Surgical History: Reports Other
Additional Past Surgical History:
RT Torn Rotator Cuff 2007����
Colonoscopy�����
Polypectomy�����
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
Tonsillectomy�����
Bilateral Knee Replacement (L 2009, R 2019)�����
2 R lung nodules removed ([place]) 2008�����
R first finger amputation 2007�����
Spinal Tap 01/2023�����
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
Social History
Tobacco: Non-smoker
Alcohol: None
Drug: None
Personal:
Living: With Family
Employment: Retired (certified medical technician assistant)
Family History
Family History: Not pertinent
Allergies / Home Medications
Allergies reflects when Allergies were last updated in [facility].
Home Medications with original date entered in [facility]
Allergy/Medication List:
Allergies:
Codeine: Dizziness
Iodinated agents - fainting/migraine
COVID 19 vaccine- muscle weakness, urinary incontinence
Medications:
Acetaminophen 325 MG Tablet 1 tablet as needed Orally every 4 hrs PRN.
Albuterol Sulfate 108 (90 Base) MCG/ACT Aerosol Powder Breath Activated 1 puff as needed Inhalation every 4 hrs PRN.
Aspirin 81(Aspirin) 81 MG Tablet Chewable 1 tablet Orally Once a day.
Atorvastatin Calcium 80 MG Tablet 1 tablet Orally Once a day.
Azelastine HCl 0.1 % Solution 1 puff in each nostril Nasally Twice a day.
Biotin 10 MG Tablet 1 tablet Orally Once a day.
Cholecalciferol 25 MCG (1000 UT) Capsule 1 capsule Orally Once a day.
Famotidine 20 MG Tablet 1 tablet at bedtime as needed Orally Once a day.
Feosol(Ferrous Sulfate Dried) 200 (65 Fe) MG Tablet 1 tablet Orally daily.
FLUoxetine HCl 40 MG Capsule 1 capsule Orally Once a day.
Fluticasone Propionate 50 MCG/ACT Bottle 2 spray by intranasal route every day in each nostril Nasal Once a day.
Icosapent Ethyl 1 GM Capsule 2 capsules with meals Orally Twice a day.
Ipratropium-Albuterol 0.5-2.5 (3) MG/3ML Solution 3 mL as needed Inhalation every 6 hrs.
Lisinopril 2.5 MG Tablet 1 tablet Orally Once a day.
Loratadine 10 MG Tablet 1 tablet Orally Once a day.
Lysine 1000 MG Tablet as directed Orally QD.
Meclizine HCl 25 MG Tablet 1 tablet as needed Orally every 12 hrs PRN.
Melatonin 3 MG Tablet 1 tablet at bedtime as needed Orally Once a day.
Mirtazapine 15 MG Tablet 1 tablet at bedtime Orally Once a day.
Montelukast Sodium 10 MG Tablet 1 tablet Orally Once a day.
Multivitamin(Multiple Vitamin) - Tablet 1 tablet Orally Once a day.
Nitroglycerin 0.4 MG Tablet Sublingual as directed Sublingual.
Ondansetron HCl 4 MG Tablet take 1 tablet by mouth every 8 hours if needed for nausea.
Pantoprazole Sodium 20 MG Tablet Delayed Release 1 tablet 30min prior to breakfast Orally Once a day.
Primidone 50 MG Tablet 1 tablet Orally Once a day.
ProAir HFA 108 (90 Base) MCG/ACT Aerosol Solution 1 puff as needed Inhalation every 4 hrs.Tums PRN.
Review of Systems
-
History Source: Patient
Constitutional: Reports Fatigue
EENT: Reports No Symptoms
Respiratory: Reports Other (asthma)
Cardiac: Reports No Symptoms; Denies Chest Pain, Diaphoresis, Palpitations or Syncope
Abdomen/GI: Reports No Symptoms
: Reports No Symptoms; Denies Dysuria, Frequency or Difficulty Voiding
Musculoskeletal: Reports No Symptoms
Skin: Reports No Symptoms
Neurological: Reports Other (memory issues r/t PRODUCTION TRUCK DRIVER shunt)
Endocrine: Reports No Symptoms
Hematologic/Lymphatic: Reports No Symptoms
Psych: Reports No Symptoms
Physical Exam
Physical Exam
General: Well Developed, Well Nourished, No Apparent Distress, Comfortable and Conversant
HEENT: NormoCephalic
Respiratory: Clear; No Wheezes, Rales or Rhonchi
Cardiac: S1/S2, Regular Rhythm and Murmur (Grade III/ NEERAJ); No Peripheral Edema
Breast: Deferred by me
GI: Soft, Non Tender, Non Distended and Normal Bowel Sounds
Rectal: Deferred by Provider
Genito-urinary: Deferred by me
Musculoskeletal: No Edema
Neuro: AO x 3, Nonfocal/grossly intact and Other (forgetful but aware of deficit)
Psych: Calm and Intact Judgment/Insight
Data Reviewed
-
Diagnostic Radiology: Report Reviewed by me
Medical Tests (Nuc Med, Echo, EKG etc): Report Reviewed by me
Lab Data: Labs Reviewed by me
Old Records: Reviewed (cardiology and CT consult notes)
Impression/Plan
-
IMPRESSION:
Severe aortic stenosis
PLAN:
-Proceed with TF-TAVR on 01/19 utilizing a 23mm S3 valve
-Will pre-medicate with Prednisone and Benadryl prior for contrast allergy
-Continue ASA 81mg daily
-POD #1/#30 Echocardiogram
-Cardiac rehab consult
Laboratory Results
-
Laboratory Data
01/11/25 12:26
01/11/25 12:26
PT 13.0 Sec (11.4-14.6) 01/11/25 12:26
INR 0.94 01/11/25 12:26
APTT Cancelled 01/11/25 12:26
Total Bilirubin 0.7 mg/dl (0.2-1.3) 01/11/25 12:
Direct Bilirubin 0.2 mg/dl (0.0-0.4) 01/11/25 12:26
AST 23 U/L (14-36) 01/11/25 12:26
ALT 30 U/L (0-35) 01/11/25 12:26
Alkaline Phosphatase 95 U/L (38-126) 01/11/25 12:26
Total Protein 7.6 g/dl (6.3-8.2) 01/11/25 12:
Albumin 4.7 g/dl (3.5-5.0) 01/11/25 12:26
[2025-01-11 12:14] VITALS: BMI 23.9
[2025-01-11 13:22] LABS: Urine Albumin Negative (Neg - Trace); Urine Bilirubin Negative (Negative); Urine Character Clear (Clear); Urine Color Yellow; Urine Glucose Negative (Negative); Urine Ketone Negative (Negative); Urine Leukocyte Negative (Negative); Urine Nitrite Negative (Negative); Urine Occult Blood 1+ (Negative); Urine Specific Gravity 1.005 (<1.030); Urine Urobilinogen Negative (Neg - 1+)
[2025-01-11 13:24] LABS: % Basophils 0.8 % (0-2); % Eosinophils 4.2 % (0-6); % Immature Granulocytes 0.8 % (0-0.5); % Lymphocytes 27.9 % (20.5-51.1); % Monocytes 10.1 % (1.7-9.3); % Neutrophils 56.2 % (42.2-75.2); Absolute Basophils 0.1 10^3/uL (0-0.2); Absolute Eosinophils 0.3 10^3/uL (0-0.7); Absolute Immature Granulocytes 0.1 10^3/uL (0-0.05); Absolute Monocytes 0.7 10^3/uL (0.1-0.6); Hematocrit 41.9 % (37.0-47.0); Mean Corp Hgb Conc. 33.4 g/dL (33.0-37.0); Mean Corpuscular Volume 95.7 fL (81.0-99.0); Mean Platelet Volume 8.8 fL (7.4-10.4); Nucleated Red Blood Cells % 0 %; Platelet Count 292 10^3/uL (130-400); Red Blood Cell Count 4.38 10^6/uL (4.20-5.40); Red Cell Dist. Width 12.9 % (11.5-14.5); White Blood Cell Count 7.2 10^3/uL (4.8-10.8)
[2025-01-11 13:28] LABS: INR 0.94
[2025-01-11 13:43] LABS: Urine Red Blood Cell 0-2 /HPF (0-2)
[2025-01-11 13:44] LABS: Urine White Cell 0-2 /HPF (0-5)
[2025-01-11 14:01] LABS: NT-proBNP 106 pg/ml
[2025-01-11 14:30] LABS: ALT (SGPT) 30 U/L (0-35); AST (SGOT) 23 U/L (14-36); Albumin 4.7 g/dl (3.5-5.0); Alkaline Phosphatase 95 U/L (38-126); Blood Urea Nitrogen 12 mg/dl (7-17); Calcium 10.2 mg/dl (8.4-10.2); Carbon Dioxide 30 mmol/L (22-30); Chloride 101 mmol/L (98-107); Direct Bilirubin 0.2 mg/dl (0.0-0.4); Estimated Creatinine Clearance 55 ml/min; Glucose 52 mg/dl (70-99); Potassium 4.3 mmol/L (3.5-5.1); Sodium 140 mmol/L (135-145); Total Bilirubin 0.7 mg/dl (0.2-1.3); Total Protein 7.6 g/dl (6.3-8.2); eGFR > 60.00
--- NOTE | 2025-01-11 14:54 | CM ---
CM following for DC planning needs.
Met w/ patient and 'helper', Tyesha during PATs for planned TAVR, 01/19.
Pt. resides w/ spouse in a private, [address] [facility], located in a [place] community.
Pt. is functionally indep. with use a RW in the community; occasional use @ home. Pt. also has a WC and a SPC but does not use regularly.
Pt. has a helper that assists as needed 2x/week.
Pt. has 4 daughters, who live locally and are involved.
Reviewed pre and post op routines.
Soap, shower instructions and TAVR booklet provided/reviewed.
Reviewed post op restrictions to include lifting, driving restrictions.
Reviewed post op MD appointments, Cardiac Rehab and visit from CT Transitional Care RN.
Plan is for TAVR on 01/19.
Antic. DC plan is for home w/ CT Transitional Care RN.
Will follow.
[2025-01-12 08:54] LABS: Glycohemoglobin (HgbA1c) 5.5 % (4.0-5.6)
[2025-01-19] VITALS (15 sets, daily range): BP systolic 95–134; BP diastolic 48–86; BMI 23.2
[2025-01-19] MEDS: BENADRYL 50 MG PO (08:36)
--- NOTE | 2025-01-19 10:51 | CM ---
Patient in OR today for planned TAVR procedure.
Reviewed initial assessment information. Pt. resides w/ spouse in a private [address] home in a [place] community. Home has approx. 2 CHANTAL. Pt. has 4 supportive dtrs. and also has a helper 2x/ week to assist as needed. Pt. uses a RW in the community and
occasionally at home.
Antic. DC plan is for home w/ CT Transitional Care RN.
CM to follow.
--- NOTE | 2025-01-19 11:48 | W.CVOR.SURPR ---
CVOR Surgeon Immed Pre Op
-
Dr. Lozano examined this patient prior to performance of the scheduled procedure.
The patient's condition is unchanged from the time of the dictated/written History and
Physical and the patient is able to undergo the scheduled procedure.
--- NOTE | 2025-01-19 11:49 | W.IMMPOSTOP ---
Surgical Immed Post Op Note
-
[id number]
STRUCTURAL HEART PROCEDURE NOTE: TAVR
Preoperative Dx:
Severe aortic stenosis (P/M: 76.4/49.0, CANDIS 0.6, DI 0.2, Pillowcase Sewer 4.37)
Ipaahdsp-rj-koygzh AI
CAD s/p MT x 2
Lung CA (stage IA) s/p Rx c/b PA laceration
Vasovagal syncope (2017)
Takotsubo cardiomyopathy w/ LVEF 25-30% in 2012
Hx of PE s/p TKA (2011)
Normal pressure hydrocephalus s/p PAD MACHINE OPERATOR shunt
GERD
IBS
Schatzki ring s/p dilation (2012)\\
Duodenal ulceration
Dysphagia
Malnutrition
SCC on face
Mild VLAENTÍN
Postoperative Dx:
Same
Ooebm-or-bfieprc combined systolic/diastolic CHF w/ LVEDP 27mmHg
Procedures:
1) L CFV access w/ U/S and fluoroscopic guidance, seldinger technique, 6Fr long femoral sheath placement
2) L BSS SOLUTION ARCHITECT access w/ tactile, U/S, and fluoroscopic guidance, seldinger technique, 6Fr long femoral sheath placement
3) Placement of temporary RV pacing wire, threshold testing
4) Placement of pigtail catheter in RCC w/ limited aortography & confirmation of co-planar valve deployment angle
5) R BSS SOLUTION ARCHITECT access w/ tactile, U/S, and fluoroscopic guidance, seldinger technique, limited angiography thru micropuncture sheath, 8Fr dilator placement
6) Placement of perclose sutures x 2 into R BSS SOLUTION ARCHITECT - 8Fr sheath placement
7) Placement of Hoyos E-sheath via R BSS SOLUTION ARCHITECT (systemic heparinization)
8) Wire purchase across stenotic AV (AL-1, soft-tip straight, table-J, pigtail catheter, LVEDP assessment, extra-stiff)
9) R TF TAVR w/ placement of 23mm MAXIMO 3 valve
10) Completion aortography
11) Completion TTE (mean gradient 6mmHg (subsequently measured at 4mmHg), no AI/PVL)
12) Removal of olnkp-taaosqhw-foicnn, Hoyos E-sheath from R BSS SOLUTION ARCHITECT w/ mgmt w/ perclose sutures x 2; manual pressure
13) Completion R ileofemoral angiography
14) Limited L BSS SOLUTION ARCHITECT angiography
15) Removal of L BSS SOLUTION ARCHITECT 6Fr sheath w/ mgmt w/ 6Fr angioseal; manual pressure
16) Removal of temporary pacing wire and L CFV 6Fr sheath; manual pressure (protamine)
Tonger:
Dr. Saleem Lozano
Cardiac Surgeon:
Dr. Edward Vincent
Anesthesia:
MAC & local to B/L groins
Complications:
None
Cath Data:
Start: 1108hrs, Deploy: 1134hrs, End: 1146hrs
FT: 6.2min, mGy: 193, DAP: 19.7, Contrast: 68mL
Post-TTE: mean gradient 6mmHg, no AI/PVL
Implants:
Hoyos [employer], MAXIMO 3, 23mm, [id number]
Perclose x 2 to R BSS SOLUTION ARCHITECT
6Fr angioseal x 1 to L BSS SOLUTION ARCHITECT
Condition:
Stable/guarded to Recovery
--- NOTE | 2025-01-19 12:10 | ITS.CL.PN ---
[facility] - Procedure Note
Procedure
Procedure Note:
TRANSCATHETER AORTIC VALVE REPLACEMENT REPORT
Date of Procedure: 01/19/2025
Referring: Dr. Saleem Mo MD, PhD
Indication: Severe symptomatic aortic stenosis
Operators: Saleem Lozano MD, PhD (interventional cardiology); Dr. Edward Vincent MD (CT surgery)
Anesthesia: conscious sedation provided by the anesthesia staff
PROCEDURE: transfemoral, transcatheter aortic valve replacement with an Hoyos MAXIMO 3 Ultra 23 mm valve
ACCESS:
1. 6F left femoral vein (closure: manual hemostasis)
2. 6F left common femoral artery (closure: Angioseal)
3. 14 F right common femoral artery (closure: Perclose x2)
HEMODYNAMIC DATA
LVEDP 27 mmHg
PROCEDURE NARRATIVE:
The patient was prepped and draped in standard sterile fashion. Conscious sedation was provided by the anesthesia staff. 6F left femoral vein and left common femoral artery access was obtained with ultrasound guidance using micropuncture technique
with verification of appropriate arteriotomy location via hand injection angiography. A temporary venous pacing wire was advanced via the left femoral vein to the right ventricle under fluoroscopic guidance with appropriate capture verified. A 5F
pigtail catheter was advanced via the left common femoral artery and seated in the right coronary cusp. Angiography was performed to verify the co-planar angle.
8F right common femoral artery access was obtained with ultrasound guidance using micropuncture technique with verification of appropriate arteriotomy location via hand injection angiography. The arteriotomy was preclosed with two Perclose sutures
followed by replacement of the 8F sheath. Using an AL1 catheter, an Amplatz Extrastiff wire was placed in the descending thoracic aorta. The 8F sheath was removed and the 14 F Hoyos E-sheath was inserted over the Extrastiff wire and into the
descending aorta. Heparin 6000 units was given. The AL1 catheter was re-advanced through the E-sheath to the level of the ascending aorta. The Extrastiff wire was exchanged for a soft tipped straight wire which was used to cross the aortic valve and
deposit the AL1 in the LV apex. A J-wire was used to exchange the AL1 for a pigtail catheter in the LV and LVEDP was measured. An Amplatz Extrastiff wire with curved proximal end was advanced through the pigtail catheter and seated in the LV apex.
ACT was checked and confirmed to be >300 seconds.
The valve was brought to the table with orientation and deployment contrast volume verified. The valve was advanced over the Extrastiff wire and into the descending aorta. The balloon was withdrawn, and the valve was mounted on the balloon. The
valve was advanced over the aortic arch and into the aortic valve annulus. The pusher device was withdrawn. Low volume aortography confirmed valve positioning. The valve was deployed during rapid ventricular pacing. The balloon was walked back to
the descending aorta while leaving the wire in place. The patient was resuscitated by anesthesia with recovery of adequate blood pressure. Telemetry demonstrating sinus rhythm. Aortography demonstrated good valve positioning, adequate coronary
filling, and no aortic valve insufficiency. Echocardiography confirmed no aortic insufficiency. Mean valve gradient was 4 mmHg. The valve deployment system was removed.
The Hoyos E sheath was removed, and hemostasis obtained with the two Perclose sutures. Protamine 193 mg was given. Aortoiliac angiography demonstrated no evidence of iliofemoral dissection/perforation and good runoff below the common femoral
artery bilaterally. The pacemaker and the pigtail catheter were removed. The left femoral artery sheath was removed using a 6F Angioseal. The left femoral venous sheath was removed with manual pressure.
RADIATION: dose 193 mGy; DAP 19.7 Gy*cm2; fluoroscopy time 6.2 min
CONCLUSIONS
1. successful placement of a Hoyos MAXIMO 3 Ultra 23 mm transcatheter aortic valve via right transfemoral approach with no acute complications
2. acute on chronic systolic heart failure with elevated filling pressures (LVEDP = 27)
Copy to: Dr. Saleem Mo MD, PhD (ticketing agent); Michelle Cantu NP (PCP)
Signed: Saleem Lozano MD, PhD
--- NOTE | 2025-01-19 12:11 | W.PN.UPDATE ---
Update Note
Progress Note Update
Reviewed Ms. Woodward with the heart team in the preTAVR SDM meeting and confirmed a 23mm S3 via right TF access. Patient will resume aspirin post TAVR. LVEDP 27mmHg. #23mm S3 (Serial# [id number]) successfully implanted via right transfemoral access.
Post implant MG 4mmHg.
[2025-01-19] MEDS: ANCEF 10 IV ×2 (14:47)
[2025-01-19] MEDS: LASIX 20 MG IV (14:59)
--- NOTE | 2025-01-19 17:48 | W.DCSUMMARY ---
Discharge Summary
Discharge Data
Date of Admission: 01/19/25
Date of Discharge: 01/20/25
-
Pending Results: No
Hospital Course
Primary care physician: Dr. Michelle Cantu
Outpatient ironing worker: Dr. Saleem Lozano
Inpatient consultants: [facility]
Procedures:
1. Right Transfemoral Transfemoral Transcatheter Aortic Valve Replacement with 23 mm Jos 3 valve
Primary Diagnosis:
1. Severe Aortic Stenosis
Secondary Diagnoses:
1. CAD s/p NC x 2
2. HLD
3. Lung Ca (stage IA) s/p Rx c/b PA laceration
4. Asthma
5. PE (provoked)
6. takotsubo cardiomyopathy
7. Vasovagal syncope
8. Normal pressure hydrocephalus s/p VARNISHER APPRENTICE shunt
9. GERD
10. IBS
11. Schatzki ring s/p dilation (2012)
12. Duodenal Ulcer
13. Dysphagia
14. SCC (face)
15. Malnutrition
HPI: 79-year-old female who underwent extensive outpatient consultation for severe/critical who was recommended for TAVR
Hospital course:
Patient was electively admitted on 01/19/25 for a right transfemoral transcatheter aortic valve replacement with an Hoyos Jos 3 Ultra 23 mm valve implanted by Dr. Lozano & Dr. Vincent. There were no intra-op events and patient went to laborer driver
recovery following the procedure. B/L groins remained stable. She was sent to IVU for the remainder of their recovery. On 01/20/25, POD #1, B/L groins remained stable. Home medications were resumed and restarted. Repeat TTE showed a peak/mean
gradient of 31/16 . She was deemed stable for discharge.
Home medication changes:
See listed below.
Discharge Plan
-
Patient Disposition: Home (Routine Discharge)
Discharge Diagnosis/Procedures: TF-TAVR
Condition: Good
Diet: Low Cholesterol and 2 Gram Sodium
Activity: As tolerated
Driving Restrictions: No driving for 1 week
Bathing Restrictions: OK to Shower
Others Tests: 30 Day Follow Up Echocardiogram: 02/20/2025 at [facility] at 3:00pm
You will require lifelong preprocedural/predental antibiotic prophylaxis for any future dental procedures.
Other Services: Cardiac Rehab
Wound Care: Please do not apply lotions, creams or powders to groin areas. Please monitor for increased pain, swelling, redness or drainage. Notify your doctor if any occur.
Specialty Instructions: Weigh Daily- Call MD for wt gain/loss 3 lbs overnight/5 lbs in 1 week
Referrals:
CT Transitional Care Nurse [Outside] (The Cardiothoracic Transitional Care Nurse will call you to set up a visit in 1-2 days.)
[facility]. Cardiac Rehab [Outside]
(Cardiac Rehab Orientation appointment and� First Exercise appointment is on 02/16/25 at 10:00
The Cardiac Rehab gym is located on the first floor of the [facility].)
Hortencia Umaña CRNP [Specified Professional Personl] - 02/27/25 10:40 am
Michelle Cantu CRNP [Family Provider] -
Prescriptions:
Continued
primidone 50 mg Tablet
50 mg PO HS
montelukast [Singulair] 10 mg Tablet
10 mg PO DAILY
lysine [L-Lysine] 500 mg Tablet
1,000 mg PO DAILY
aspirin 81 mg Capsule
81 mg PO DAILY
fluoxetine 40 mg Capsule
40 mg PO DAILY
atorvastatin 80 mg Tablet
80 mg PO DAILY
fluticasone propion-salmeterol [Advair Diskus] 100-50 mcg/dose Blister With Device
1 inh INHALATION PRN PRN (Reason: SOB)
loratadine 10 mg Tablet
10 mg DAILY
icosapent ethyl [Vascepa] 1 gram Capsule
2 g PO BID
albuterol sulfate 90 mcg/actuation Hfa Aerosol Inhaler
2 puff inhalation R Q4HPRN PRN (Reason: SOB) 30 Days Qty: 1 0RF
acetaminophen 325 mg Tablet
650 mg PO Q4HPRN PRN (Reason: Mild Pain / Temp > 101) Qty: 60 0RF
multivitamin Tablet
1 tab PO DAILY
biotin 10 mg Tablet
10 mg PO DAILY
ipratropium-albuterol 0.5 mg-3 mg(2.5 mg base)/3 mL Solution For Nebulization
3 ml INHALATION Q6H PRN (Reason: SOB)
donepezil 10 mg Tablet
10 mg PO HS
famotidine 20 mg Tablet
20 mg PO HS PRN (Reason: nausea)
meclizine 25 mg Tablet
25 mg PO DAILY PRN (Reason: nausea)
pantoprazole 40 mg Tablet,Delayed Release (Dr/Ec)
40 mg PO DAILY
ferrous sulfate 325 mg (65 mg iron) Tablet
325 mg PO DAILY
nitroglycerin 0.4 mg Tablet, Sublingual
0.4 mg SUBLINGUAL Q5-15M PRN (Reason: chest pain)
azelastine 137 mcg (0.1 %) [place],Non-Aerosol
1 spray INTRANASAL BID PRN (Reason: nasal congestion)
lisinopril 2.5 mg Tablet
2.5 mg PO DAILY
magnesium 200 mg Tablet
400 mg PO DAILY
cholecalciferol (vitamin D3) 25 mcg (1,000 unit) Tablet
25 mcg PO DAILY
ondansetron 4 mg tablet,disintegrating
4 mg PO Q8H PRN (Reason: nausea)
loperamide 2 mg Capsule
2 mg PO QID PRN (Reason: diarrhea)
rivastigmine tartrate 3 mg Capsule
3 mg PO DAILY
Rx Instructions:
Take with food
diphenhydramine-acetaminophen [Tylenol PM Extra Strength] 25-500 mg Tablet
2 tab PO HS PRN (Reason: insomnia)
Discharge Orders:
Discharge Patient (As Directed); Ordered 01/20/25
Ordered By: Bhavana Cordero
Care Plan Goals
Care Plan Goals:
Problem: Readiness for enhanced knowledge related to diagnosis and treatment plan
Goal: Understand your diagnosis and treatment plan needs, including medications if applicable.
Instructions: Know your diagnosis, underlying causes and treatment plan options, including medications if applicable. Consult with your health care team to learn about your diagnosis and treatment plan, including medications if applicable.
Discharge Date and Time
Print Language: [place]
[2025-01-19] MEDS: ANCEF 5 IV (18:05)
--- NOTE | 2025-01-19 18:48 | PTCARENOTE ---
~1300: Patient transfered to room from CCL s/p TAVR. Pt AOx4, NSR on tele, RA satting 92%. Pt denies pain at this time. Groin sites soft and dressings CDI. EKG obtained per order. Patient instructed to remain flat and NPO until 1600 per order. Pt
educated on callbell system and remote. All needs met at this time, call warner within reach.
~9009-6725: Patient bedrest, tolerating well. Groin sites soft and dressings CDI. VSS at this time. NSR 80s, SBPs 100s-120s, 95% RA. Family at bedside.
~1600: Patient HOB 30 degrees, sites soft, patient c/o slight pain on L groin site while coughing but does not want pain medication at this time. Pt educated to apply pressure to groin while coughing.
~1188-9423: Patient in bed, groin sites soft and 2/2 palpable pulses. Aox4, Family at bedside. All needs met at this time, call warner within reach. Handoff report given to nightshift RN.
[2025-01-19] MEDS: ADVAIR HFA 45/21 MCG INHALER 2 PUFF INH (20:08)
[2025-01-19] MEDS: MYSOLINE 50 MG PO (22:29)
[2025-01-19] MEDS: ARICEPT 10 MG PO (22:29)
--- NOTE | 2025-01-19 22:55 | PTCARENOTE ---
Received patient at change of shift. SR on the monitor, HR in the 80s. Bilateral groin dressings CDI, soft. No complaints from pt at this time, call warner within reach.
[2025-01-20 03:37] VITALS: BP 97/55
[2025-01-20 04:02] VITALS: BMI 22.6
[2025-01-20 04:16] LABS: Hemoglobin 12.9 g/dL (12.0-16.0); Mean Corp Hgb Conc. 33.9 g/dL (33.0-37.0); Mean Corpuscular Hgb 32.3 pg (27.0-31.0); Mean Platelet Volume 8.7 fL (7.4-10.4); Platelet Count 229 10^3/uL (130-400); Red Cell Dist. Width 12.9 % (11.5-14.5); White Blood Cell Count 12.9 10^3/uL (4.8-10.8)
[2025-01-20 04:39] LABS: Blood Urea Nitrogen 19 mg/dl (7-17); Calcium 9.8 mg/dl (8.4-10.2); Carbon Dioxide 24 mmol/L (22-30); Chloride 105 mmol/L (98-107); Estimated Creatinine Clearance 57 ml/min; Glucose 89 mg/dl (70-99); Potassium 3.8 mmol/L (3.5-5.1); Sodium 140 mmol/L (135-145); eGFR > 60.00
--- NOTE | 2025-01-20 06:49 | W.PN.CT ---
Today's Communication / Plan
-
-pod #1
-no issues overnight
-nsr 70s overnight. No gucci or pauses
-ECG: nsr, no change
-Echo today
-current meds (ASA, Lipitor, Zestril..)
-encourage IS, OOB
-possible d/c
Assessment / Plan
-
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
- Lzbky-eo-fcmjnwy combined systolic/diastolic CHF w/ LVEDP 27mmHg-diuresed with 20 iv Lasix (UO 1150)
- Post-TTE: mean gradient 6mmHg, no AI/PVL
- Htjooahr-ic-uxdpvi AI
- CAD s/p IA x 2
- Lung CA (stage IA) -s/p Rx c/b PA laceration
- Vasovagal syncope (2018)
- Takotsubo cardiomyopathy w/ LVEF 25-30% in 2013
- Hx of PE s/p TKA (2011)
- Normal pressure hydrocephalus s/p INSTRUMENT FITTER shunt
- GERD
- IBS
- Schatzki ring s/p dilation (2012)
- Duodenal ulceration
- Dysphagia
- Malnutrition
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
- Mild VALENTÍN
Discussed patient care with: Nursing and Care Team
Subjective
-
Date of Service: January 20, 2025
Objective Data
-
PT 13.0 Sec (11.4-14.6) 01/11/25 12:26
INR 0.94 01/11/25 12:26
APTT Cancelled 01/11/25 12:26
Vital Signs
Vital Signs
Temp Pulse Resp BP Pulse Ox
98.3 F 84 18 114/59 97
01/19/25 22:30 01/19/25 22:45 01/19/25 22:30 01/19/25 22:25 01/19/25 23:12
CT Intake/Output/Weight
01/19/25 01/19/25 01/20/25
06:59 18:59 06:59
Output Total 1150 / 1150
Balance -1150 / -1150
SaO2: 97
Physical Exam
-
General: Awake and AOx3
Cardiovascular: Regular rate & rhythm, Murmur (2/6 systolic @ rsb) and No Rub
Respiratory: Clear
Incision: Other (groins are cdi, soft, nontender, nondistended)
Extremities: No Edema (1+ DPs b/l)
Abdomen: soft, nontender, nondistended, + bowel sounds
Data Reviewed
-
Lab Results: Results Reviewed
Medications: Active Meds Reviewed
Chest X-Ray: Report Reviewed and Image Reviewed
ECG: Report Reviewed and Image Reviewed
[2025-01-20] MEDS: ADVAIR HFA 45/21 MCG INHALER 2 PUFF INH (07:54)
[2025-01-20] MEDS: VITAMIN D3 (cholecalciferol) 25 MCG PO (08:45)
[2025-01-20] MEDS: PROZAC 40 MG PO (08:45)
[2025-01-20] MEDS: CLARITIN 10 MG PO (08:45)
[2025-01-20] MEDS: LIPITOR 80 MG PO (08:45)
[2025-01-20] MEDS: PROTONIX 40 MG PO (08:45)
[2025-01-20] MEDS: THERAGRAN 1 TABLET PO (08:45)
[2025-01-20] MEDS: EXELON 3 MG PO (08:45)
[2025-01-20] MEDS: ASPIR LOW (ENTERIC COATED) 81 MG PO (08:45)
[2025-01-20] MEDS: ZESTRIL 2.5 MG PO (08:45)
[2025-01-20] MEDS: FEOSOL 325 MG PO (08:45)
[2025-01-20] MEDS: MAGNESIUM OXIDE 250 MG PO (08:46)
[2025-01-20] MEDS: SINGULAIR 10 MG PO (08:46)
--- NOTE | 2025-01-20 09:18 | W.PN.ANS.POP ---
Anesthesia Post Operative
- Anesthesia Post Op Note
Vital Signs Stable-See Nursing Note: Yes
Airway Patent: Yes
Adequate Pain Control: Yes
Change in Mental Status: No
Current Postoperative Nausea & Vomiting: No
Anesthesia Complications: No
General Anesthetic Recall: No
Unplanned Admission: No
Post Op Hydration Adequate: Yes
--- NOTE | 2025-01-20 10:51 | CM ---
Chart reviewed. Patient is independent of ADLS, lives with her in a 1 [address], 2 [address]ANT[address], has a wheelchair and a SPC at home. Patient also occasionally wears home O2. Patient has a helper 2x/week and supportive daughters who live close. Plan is
for the patient to return home with CT Transitional RN. CM to follow
[2025-01-20 11:37] VITALS: BP 102/57; BP 90/63; PULSE 82; O2SAT 95; O2SAT 96
--- NOTE | 2025-01-20 13:46 | W.PN.CD ---
Today's Communication / Plan
-
stable for discharge
Impression / Plan
-
Ms. Woodward is a 79 year old with past medical history of severe now POD 1 status post transfemoral TAVR (23 [place]). During the case she was noted to have severely elevated LV filling pressures (LVEDP 27 mmHg) treated post-op with IV
lasix. She felt well overnight. Stable on tele.
Labs stable and unremarkable.
Echo 01/20/2025
Estimated LVEF 60-65%.
23 mm [place] transcatheter aortic valve replacement. Peak/mean gradients
across the aortic valve are 31/16 mmHg.
No aortic regurgitation is seen.
Normal pericardium without effusion.
Compared to 01/19/25: prior TAVR gradients were 8/5 mmHg, no AR.
Physical Exam
Vital Signs/Labs
Vital Signs
Temp Pulse Resp BP Pulse Ox
37.3 C 94 20 112/62 97
01/20/25 11:04 01/20/25 08:45 01/20/25 11:04 01/20/25 08:45 01/20/25 11:04
01/19/25 01/20/25 01/21/25
06:59 06:59 06:59
Actual Weight 59.6 kg
01/20/25 03:49
01/20/25 03:49
PT 13.0 Sec (11.4-14.6) 01/11/25 12:26
INR 0.94 01/11/25 12:26
APTT Cancelled 01/11/25 12:26
01/11/25
12:26
Arq-V-Nynjhateuvf Pept 106
Physical Exam
Constitutional: No acute distress
Cardiovascular: Rhythm & rate is regular
Respiratory: Respiratory effort normal
Neuro/Psych: AO x 3
Other: Cath Site (cdi)
Data Reviewed
-
Date of Service: January 20, 2025
Medical Decision Making: Reviewed Test Results
EKG: Tracing Personally Visualized and interpreted
Echo: Tracing Personally Visualized and interpreted
X-Ray/CT/US/MRI/NUC/PET: Image Personally Visualized and interpreted
Labs: Labs Reviewed by me
--- NOTE | 2025-01-20 13:54 | PTCARENOTE ---
~[id number]: Handoff report received from nightshift RN. Pt Aox4, forgetful at times, NSR on tele + murmur, 90s on RA. Pt denies pain at thsi time. 2/2 pulses present, groin sites CDI and soft, R side with some bruising noted. Echo completed at
bedside this AM. All needs met at this time, call warner within reach.
~[id number]: Pt work with cardiac rehab, SBP 80s, patient Asymptomatic.
~[id number]: Patient OOB in chair. Denies pain at this time. Groin sites undressed by cardiology and sites soft with minimal bruising. Discharge paperwork gone over with patient and via telephone call. Patient taken down to lobby via
wheelchair by Lashonda SMITH in stable condition.
== END 2025-01-20 13:55 | disposition home or self-care (01) | DRG 266 ==
LOC: IVU 08:01
PROVIDERS: ADMITTING PHYSICIAN Thoracic Surgery (Cardiothoracic Vascular Surgery); ATTENDING PHYSICIAN Thoracic Surgery (Cardiothoracic Vascular Surgery); FAMILY PHYSICIAN Nurse Practitioner Primary Care; OTHER PHYSICIAN Student in an Organized Health Care Education/Training Program
PROC: 02RF38Z Replacement of Aortic Valve with Zooplastic Tissue, Percutaneous Approach (ICD-10-PCS; 2025-01-19)
DX: I35.2 Nonrheumatic aortic (valve) stenosis with insufficiency (principal); Z00.6 Encounter for examination for normal comparison and control in clinical research program; I50.43 Acute on chronic combined systolic (congestive) and diastolic (congestive) heart failure; E46 Unspecified protein-calorie malnutrition; G91.2 (Idiopathic) normal pressure hydrocephalus; I51.81 Takotsubo syndrome; C34.90 Malignant neoplasm of unspecified part of unspecified bronchus or lung; I25.10 Atherosclerotic heart disease of native coronary artery without angina pectoris; K21.9 Gastro-esophageal reflux disease without esophagitis; K58.9 Irritable bowel syndrome, unspecified; K22.2 Esophageal obstruction; G47.33 Obstructive sleep apnea (adult) (pediatric); J45.909 Unspecified asthma, uncomplicated; F32.A Depression, unspecified; F41.9 Anxiety disorder, unspecified; E78.00 Pure hypercholesterolemia, unspecified; Z68.22 Body mass index [BMI] 22.0-22.9, adult; I25.2 Old myocardial infarction; Z86.711 Personal history of pulmonary embolism; Z98.2 Presence of cerebrospinal fluid drainage device; Z79.82 Long term (current) use of aspirin; Z87.11 Personal history of peptic ulcer disease; Z91.041 Radiographic dye allergy status
CPT/HCPCS: 93308; 33361; 36415; 71045; 71046; 80048; 80053; 81003; 81015; 81050; 82248; 82340; 82570; 83036; 83880; 85025; 85027; 85347; 85610; 86850; 86900; 86901; 87070; 87147; 93005; 93321; 93325; 94640; C1760; C1769; C1894; Q9967

== ENCOUNTER → 2025-02-20 15:05 | Outpatient (REF) | payer MEDICARE, SELFPAY | LOC: RCS 15:05 | PROVIDERS: ATTENDING PHYSICIAN Student in an Organized Health Care Education/Training Program; FAMILY PHYSICIAN Nurse Practitioner Primary Care | DX: Z95.2 Presence of prosthetic heart valve (principal) | CPT/HCPCS: 93306 ==

== ENCOUNTER → 2025-04-10 11:21 | Outpatient (REF) | payer MEDICARE, SELFPAY | LOC: RAD 11:21 | PROVIDERS: ATTENDING PHYSICIAN Nurse Practitioner Primary Care | DX: M85.89 Other specified disorders of bone density and structure, multiple sites (principal); E55.9 Vitamin D deficiency, unspecified | CPT/HCPCS: 77080 ==

== ENCOUNTER → 2025-04-19 08:49 | Outpatient (REF) | payer MEDICARE, SELFPAY | LOC: HWRAD 08:49 | PROVIDERS: ATTENDING PHYSICIAN Nurse Practitioner Adult Health; FAMILY PHYSICIAN Nurse Practitioner Primary Care | DX: G91.2 (Idiopathic) normal pressure hydrocephalus (principal); G31.84 Mild cognitive impairment of uncertain or unknown etiology; R10.9 Unspecified abdominal pain; R11.2 Nausea with vomiting, unspecified; R05.9 Cough, unspecified; Z98.2 Presence of cerebrospinal fluid drainage device; R26.9 Unspecified abnormalities of gait and mobility; J34.89 Other specified disorders of nose and nasal sinuses | CPT/HCPCS: 70450 ==

== ENCOUNTER → 2025-08-28 13:47 | Outpatient (REF) | payer MEDICARE, SELFPAY | LOC: RAD 13:47 | PROVIDERS: ATTENDING PHYSICIAN Nurse Practitioner Primary Care | DX: R63.4 Abnormal weight loss (principal); R05.1 Acute cough | CPT/HCPCS: 71250 ==